=== PATIENT | female | born 1990 | race Caucasian/White ===

== ENCOUNTER 2016-12-12 11:57 | Emergency (ER) | payer MEDICAID ==
[~2016-12-12] VITALS: Ht 160 cm; Wt 59.0 kg
[2016-12-12 12:00] VITALS: BP_SYST 122
[2016-12-12 16:53] LABS: BASOPHILS # (AUTO) 0.1 K/uL (0.0-0.2); BASOPHILS % (AUTO) 0.7 % (0.0-2.0); EOSINOPHILS # (AUTO) 0.2 K/uL (0.0-0.4); EOSINOPHILS % (AUTO) 2.2 % (0.0-4.0); HEMATOCRIT 40.4 % (36-48); HEMOGLOBIN 13.6 g/dL (12.0-16.0); LYMPHOCYTES % (AUTO) 33.5 % (20.5-51.5); MEAN CORPUSCULAR HEMOGLOBIN 30 pg (27-31); MEAN CORPUSCULAR HGB CONC 34 % (32-36); MEAN CORPUSCULAR VOLUME 89 fL (79.0-98.0); MONOCYTES # (AUTO) 0.7 K/uL (0.0-1.0); MONOCYTES % (AUTO) 7.4 % (1.7-9.3); NEUTROPHILS % (AUTO) 56.2 % (40.0-70.0); PLATELET COUNT (AUTO) 308 K/uL (130-430); RED BLOOD CELL COUNT(AUTO) 4.53 MIL/uL (4.2-6.2); RED CELL DISTRIBUTION WIDTH 12.8 % (9.0-15.0)
[2016-12-12 16:57] LABS: BILIRUBIN,URINE NEGATIVE (NEGATIVE); BLOOD, URINE NEGATIVE (NEGATIVE); CLARITY/URINE SL HAZY (CLEAR); COLOR,URINE YELLOW (YELLOW); GLUCOSE,URINE NEGATIVE (NEGATIVE); KETONES,URINE NEGATIVE (NEGATIVE); LEUKOCYTE ESTERASE ,URINE NEGATIVE (NEGATIVE); NITRITE, URINE NEGATIVE (NEGATIVE); PROTEIN URINE TRACE (NEGATIVE); UROBILINOGEN,URINE 0.2 (0.2-1.0)
[2016-12-12 17:13] LABS: BACTERIA,URINE FEW /HPF (None Seen); RBC,URINE NONE SEEN /HPF (0-3)
[2016-12-12 17:14] LABS: MUCUS,URINE 3+ /LPF (None Seen)
[2016-12-12 17:17] LABS: CALCIUM 8.7 mg/dL (8.4-11.0); CREATININE 0.68 mg/dL (0.55-1.30)
[2016-12-12 17:22] LABS: ALBUMIN 3.4 g/dL (3.4-4.8); TOTAL BILIRUBIN 0.5 mg/dL (0.0-1.0); TOTAL PROTEIN, SERUM 7.2 g/dL (6.4-8.3)
[2016-12-12 17:29] LABS: BARBITURATE, URINE NEGATIVE (NEG <=200)
[2016-12-12 17:30] LABS: BENZODIAZEPINE, URINE NEGATIVE (NEG <=150); CANNABINOID, URINE NEGATIVE (NEG <=50); COCAINE, URINE NEGATIVE (NEG <=150); METHAMPHETAMINES SCREEN,URINE POSITIVE (NEG <=500); OPIATE, URINE NEGATIVE (NEG <=100); PHENCYCLIDINE SCREEN,URINE NEGATIVE (NEG <=25); UR TRICYCLIC ANTIDEPRESSANTS NEGATIVE (NEG <=300); URINE AMPHETAMINE POSITIVE (NEG <=500); URINE METHADONE NEGATIVE (NEG <=200); URINE OXYCODONE SCREEN NEGATIVE (NEG <=100); URINE PROPOXYPHENE SCREEN NEGATIVE (NEG <=300)
[2016-12-12 18:50] VITALS: BP_SYST 128
== END 2016-12-12 18:50 | disposition home or self-care (01) ==
LOC: SED 11:57
DX: F15.10 Other stimulant abuse, uncomplicated (principal); F41.9 Anxiety disorder, unspecified; Z88.0 Allergy status to penicillin; Z86.19 Personal history of other infectious and parasitic diseases
CPT/HCPCS: 36415; 80053; 80307; 81000-TC; 81025; 85025; 99284

== ENCOUNTER 2017-09-06 10:10 | Emergency (ER) | payer MEDICAID ==
[~2017-09-06] VITALS: Ht 149.9 cm; Wt 68.0 kg
[2017-09-06 10:24] VITALS: BP_SYST 134
[2017-09-06 10:48] LABS: BILIRUBIN,URINE 1+ (NEGATIVE); BLOOD, URINE NEGATIVE (NEGATIVE); CLARITY/URINE SL HAZY (CLEAR); COLOR,URINE YELLOW (YELLOW); GLUCOSE,URINE NEGATIVE (NEGATIVE); KETONES,URINE TRACE (NEGATIVE); LEUKOCYTE ESTERASE ,URINE 2+ (NEGATIVE); NITRITE, URINE NEGATIVE (NEGATIVE); PH,URINE 6.5 (5.0-8.0); PROTEIN URINE TRACE (NEGATIVE)
[2017-09-06 10:54] LABS: UROBILINOGEN,URINE >=8 (0.2-1.0)
[2017-09-06] MEDS ORDERED: CLINDAMYCIN 600 MG in D5W 50 ML IV ONE (11:00)
[2017-09-06 11:01] LABS: EOSINOPHILS # (AUTO) 0.1 K/uL (0.0-0.4); EOSINOPHILS % (AUTO) 0.7 % (0.0-4.0); HEMATOCRIT 38.7 % (36-48); HEMOGLOBIN 12.9 g/dL (12.0-16.0); LYMPHOCYTES # (AUTO) 1.9 K/uL (1.0-5.5); LYMPHOCYTES % (AUTO) 16.2 % (20.5-51.5); MEAN CORPUSCULAR HEMOGLOBIN 30 pg (27-31); MEAN CORPUSCULAR HGB CONC 33 % (32-36); MEAN CORPUSCULAR VOLUME 89 fL (79.0-98.0); MONOCYTES # (AUTO) 0.8 K/uL (0.0-1.0); MONOCYTES % (AUTO) 7.3 % (1.7-9.3); PLATELET COUNT (AUTO) 283 K/uL (130-430); RED BLOOD CELL COUNT(AUTO) 4.37 MIL/uL (4.2-6.2); RED CELL DISTRIBUTION WIDTH 13.6 % (9.0-15.0); WHITE BLOOD COUNT (AUTO) 11.6 K/uL (4.8-10.8)
[2017-09-06 11:06] LABS: NEUTROPHILS # (AUTO) 8.8 K/uL (1.8-7.7); NEUTROPHILS % (AUTO) 75.8 % (40.0-70.0)
[2017-09-06 11:07] LABS: BACTERIA,URINE FEW /HPF (None Seen); RBC,URINE 0-3 /HPF (0-3)
[2017-09-06 11:08] LABS: MUCUS,URINE 1+ /LPF (None Seen)
[2017-09-06 11:21] LABS: CALCIUM 8.7 mg/dL (8.4-11.0); CREATININE 0.5 mg/dL (0.55-1.30); POTASSIUM 3.3 mmol/L (3.5-5.1)
[2017-09-06] MEDS ORDERED: IOHEXOL 100 ML IV ONE (11:33)
[2017-09-06 11:36] LABS: ALBUMIN 3.4 g/dL (3.4-4.8); TOTAL BILIRUBIN 0.5 mg/dL (0.0-1.0)
== END 2017-09-06 13:48 | disposition left against medical advice (07) ==
LOC: SED 10:10
DX: L03.211 Cellulitis of face (principal); M54.5 Low back pain; F41.9 Anxiety disorder, unspecified; Z86.19 Personal history of other infectious and parasitic diseases; Z88.0 Allergy status to penicillin; Z53.20 Procedure and treatment not carried out because of patient's decision for unspecified reasons
CPT/HCPCS: 36415; 70487; 71045; 71100; 80053; 81000; 81025; 83605; 85025; 87040; 99285; J3490; J7060; Q9967

== ENCOUNTER 2019-08-24 04:07 | Emergency (ER) | payer MEDICAID ==
[~2019-08-24] VITALS: Ht 149.9 cm; Wt 63.5 kg
[2019-08-24 04:15] VITALS: BP_SYST 121
[2019-08-24] MEDS ORDERED: KETOROLAC TROMETHAMINE 60 MG/2 ML VIAL IM ONE (04:45)
[2019-08-24 05:38] VITALS: BP_SYST 121
[2019-08-24] MEDS ORDERED: MORPHINE 2 MG/ML INJ. SYRINGE IVP ONE (05:45)
== END 2019-08-24 05:43 | disposition left against medical advice (07) ==
LOC: SED 04:07
DX: M79.632 Pain in left forearm (principal); F41.9 Anxiety disorder, unspecified; Z88.0 Allergy status to penicillin; Y04.0XXA Assault by unarmed brawl or fight, initial encounter; Y93.89 Activity, other specified; Y92.89 Other specified places as the place of occurrence of the external cause; Y99.8 Other external cause status
CPT/HCPCS: 73080; 73090; 81025; 99284; J1885

== ENCOUNTER 2021-10-10 00:02 | Emergency (ER) | payer SELFPAY ==
[~2021-10-10] VITALS: Ht 154.9 cm; Wt 49.9 kg
[2021-10-10 00:25] VITALS: BP_SYST 132
[2021-10-10] MEDS ORDERED: LIDOCAINE 1% 10 MG/ML, 50 ML MDV INJ ONE (00:45)
[2021-10-10] MEDS ORDERED: DIPH-TET-PERTUS Vaccine 0.5 ML VIAL (ADACEL) I.M. ONE (04:00)
[2021-10-10 06:16] VITALS: BP_SYST 124
== END 2021-10-10 06:42 | disposition home or self-care (01) ==
LOC: SED 00:02
DX: S81.811A Laceration without foreign body, right lower leg, initial encounter (principal); T50.991A Poisoning by other drugs, medicaments and biological substances, accidental (unintentional), initial encounter; Z88.0 Allergy status to penicillin; F12.90 Cannabis use, unspecified, uncomplicated; W17.89XA Other fall from one level to another, initial encounter; Y93.89 Activity, other specified; Y92.89 Other specified places as the place of occurrence of the external cause; Y99.8 Other external cause status
CPT/HCPCS: 12001; 90471; 90715; 99283; J2001; 99285